=== PATIENT | female | born 1995 | race African-American/Black ===

== ENCOUNTER 2016-08-29 15:49 | Emergency (ER) | payer OTHER ==
--- NOTE | 2016-08-29 18:22 | UC ---
Respiratory Complaint HPI - HPI Summary HPI Summary: Has asthma and seasonal allergies. Both have been flaring up for a week or two, but they are much worse today. Does not have her albuterol inhaler. Last spring she took an inhaled steroid through allergy season. - History of Current Complaint Chief Complaint: UCGeneralIllness Stated Complaint: ALLERGIES, AND ASTHMA Time Seen by Provider: 08/29/16 18:04 Hx Obtained From: Patient Hx Last Menstrual Period: 08/20/16 ?: No Onset/Duration: Gradual Onset, Lasting Weeks Timing: Constant Severity Initially: Mild Severity Currently: Moderate Character: Cough: Nonproductive Aggravating Factors: Allergens, Recumbent Position Associated Signs And Symptoms: Positive: Wheezing, Nasal Congestion - Risk Factors Pulmonary Embolism Risk Factors: Negative - Allergies/Home Medications Allergies/Adverse Reactions: Allergies Allergy/AdvReac Type Severity Reaction Status Date / Time No Known Allergies Allergy Verified 08/29/16 17:34 PMH/Surg Hx/FS Hx/Imm Hx Previously Healthy: Yes - Surgical History Surgical History: None - Family History Known Family History: Positive: Respiratory Disease - asthma - Social History Occupation: Student Lives: Alone Alcohol Use: None Substance Use Type: None Smoking Status (MU): Never Smoked Tobacco - Immunization History Most Recent Influenza Vaccination: 2016 Review of Systems Constitutional: Negative Skin: Negative Eyes: Negative ENT: Nasal Discharge Respiratory: Shortness Of Breath, Cough Cardiovascular: Negative Gastrointestinal: Negative Genitourinary: Negative Motor: Negative Neurovascular: Negative Musculoskeletal: Negative Neurological: Negative Psychological: Negative All Other Systems Reviewed And Are Negative: Yes Physical Exam Triage Information Reviewed: Yes Appearance: Well-Appearing, No Pain Distress, Well-Nourished Vital Signs: Initial Vital Signs Temp 98.8 F 08/29/16 15:50 Pulse 100 08/29/16 15:50 Resp 22 08/29/16 15:50 BP 112/77 08/29/16 15:50 Pulse Ox 100 08/29/16 15:50 Vital Signs Reviewed: Yes Eye Exam: Other - PERRL; puffy eyelids Eyes: Positive: Conjunctiva Clear ENT: Positive: Hearing grossly normal, Pharynx normal, Nasal congestion, TMs normal. Negative: Tonsillar swelling, Tonsillar exudate Dental Exam: Normal Neck exam: Normal Neck: Positive: Supple, Nontender, No Lymphadenopathy Respiratory: Positive: Chest non-tender, No respiratory distress, No accessory muscle use, Wheezing - at bases Cardiovascular Exam: Normal Cardiovascular: Positive: RRR, No Murmur Musculoskeletal Exam: Normal Neurological Exam: Normal Neurological: Positive: Alert Psychological Exam: Normal Skin Exam: Normal UC Diagnostic Evaluation - Laboratory O2 Sat by Pulse Oximetry: 100 Respiratory Course/Dx - Differential Dx/Diagnosis Provider Diagnoses: allergic rhinitis. asthma exacerbation Discharge - Discharge Plan Condition: Stable Disposition: HOME Prescriptions: Albuterol HFA INHALER* [Ventolin HFA Inhaler*] 1 - 2 puff INH Q4H PRN #1 mdi PRN Reason: wheeze, cough Fluticasone HFA 110 mcg(NF) [Flovent HFA 110 mcg(NF)] 1 puff INH BID #1 mdi Mometasone NASAL (NF) [Nasonex (NF)] 2 spray BOTH NARES DAILY #1 nasal.spr predniSONE TAB* [Deltasone TAB*] 50 mg PO DAILY #4 tab Patient Education Materials: Allergic Rhinitis (ED), Asthma (ED) Additional Instructions: Take 10mg cetirizine (Zyrtec) every morning. If needed, you can also take 25- 50mg diphenhydramine (benadryl) at bedtime. These are both [id number] and inexpensive if you buy the bulk packages. Take both the flovent and the nasonex every day through your normal allergy season. You can see a primary care provider if you need refills. Use the albuterol as needed. The prednisone should help you feel better quickly while your other medications are kicking in. If you do not like your side effects from the prednisone, you can stop it at any time.
[2016-08-29 18:44] VITALS: BP 106/73
== END 2016-08-29 18:43 | disposition home or self-care (01) ==
LOC: UCEAST 15:49
DX: J45.901 Unspecified asthma with (acute) exacerbation (principal)
CPT/HCPCS: 99202; G0463